=== PATIENT | male | born 1960 | race Caucasian/White ===

== ENCOUNTER 2017-11-25 14:47 | Inpatient (IN) | payer OTHER ==
[~2017-11-25] VITALS: Ht 177.8 cm; Wt 139.7 kg
[~2017-11-25 14:47] MED LIST: FENOGLIDE40 MG PO; HYZAAR 100-121 UDTAB PO; Hyzaar 100-12.5 Tablet PO; LIPITOR20 MG PO; NORVASC 5MG TAB PO; SYNTHROID200 MCG PO
[2017-11-25] MEDS ORDERED: HYDROCHLOROTHIA25 MG (15:00)
[2017-11-25] MEDS ORDERED: FORTAMET500 MG (15:01)
[2017-12-17] MEDS ORDERED: PREDNISONE10 MG PO (18:48)
[2017-12-17] MEDS ORDERED: LIPITOR20 MG PO (18:48)
[2017-12-17] MEDS ORDERED: LOSARTAN-HCTZ1 EAC2 PO (18:48)
[2017-12-17] MEDS ORDERED: PREDNISONE2.5 MG PO (18:48)
[2017-12-17] MEDS ORDERED: CLOPIDOGREL BIS75 MG PO (18:48)
[2017-12-17] MEDS ORDERED: Lantus 1000 UNITS/10 SUBCUTANEO (18:48)
[2017-12-17] MEDS ORDERED: PANTOPRAZOLE SO40 MG PO (18:48)
[2017-12-17] MEDS ORDERED: AMLODIPINE BESY10 MG PO (18:48)
[2017-12-17] MEDS ORDERED: BUSPIRONE HCL5 MG PO (18:48)
[2017-12-17] MEDS ORDERED: LEVOTHYROXINE200 MCG PO (18:48)
[2017-12-17] MEDS ORDERED: HYZAAR 100-12.1 EACH PO (18:48)
== END 2017-12-17 19:20 | disposition home or self-care (01) | DRG 191 ==
LOC: ER 14:47 → MEDJ 11-26 12:18 → SEC-K 11-26 12:18 → MEDI 11-26 20:23 → MEDJ 11-26 20:23
PROC: 3E0F7GC Introduction of Other Therapeutic Substance into Respiratory Tract, Via Natural or Artificial Opening (ICD-10-PCS; principal; 2017-11-26)
PROC: B246ZZZ Ultrasonography of Right and Left Heart (ICD-10-PCS; 2017-12-08)
PROC: 4A12X4Z Monitoring of Cardiac Electrical Activity, External Approach (ICD-10-PCS; 2017-12-08)
PROC: BB24ZZZ Computerized Tomography (CT Scan) of Bilateral Lungs (ICD-10-PCS; 2017-12-14)
DX: J44.1 Chronic obstructive pulmonary disease with (acute) exacerbation (principal); I24.9 Acute ischemic heart disease, unspecified; J45.41 Moderate persistent asthma with (acute) exacerbation; R09.02 Hypoxemia; G47.33 Obstructive sleep apnea (adult) (pediatric); E03.8 Other specified hypothyroidism; E78.00 Pure hypercholesterolemia, unspecified; I10 Essential (primary) hypertension; J20.9 Acute bronchitis, unspecified; J44.0 Chronic obstructive pulmonary disease with (acute) lower respiratory infection; F41.8 Other specified anxiety disorders; T38.0X5A Adverse effect of glucocorticoids and synthetic analogues, initial encounter; E09.65 Drug or chemical induced diabetes mellitus with hyperglycemia

== ENCOUNTER → 2017-12-20 | Emergency (ER) | payer OTHER ==
[~2017-12-20] VITALS: Ht 177.8 cm; Wt 129.7 kg
[~2017-12-20] MED LIST changes: +AMLODIPINE BESY10 MG PO; +BUSPIRONE HCL5 MG PO; +CLOPIDOGREL BIS75 MG PO; +FORTAMET500 MG; +HYDROCHLOROTHIA25 MG; +HYZAAR 100-12.1 EACH PO; +LEVOTHYROXINE200 MCG PO; +LOSARTAN-HCTZ1 EAC2 PO; +Lantus 1000 UNITS/10 SUBCUTANEO; +PANTOPRAZOLE SO40 MG PO; +PREDNISONE10 MG PO; +PREDNISONE2.5 MG PO
== END | disposition home or self-care (01) ==
LOC: ER 18:57
DX: M79.652 Pain in left thigh (principal); M79.651 Pain in right thigh

== ENCOUNTER → 2018-01-05 | Emergency (ER) | payer OTHER | END | disposition home or self-care (01) | LOC: ER 15:33 | DX: R06.02 Shortness of breath (principal); F41.8 Other specified anxiety disorders ==